=== PATIENT | male | born 1940 | race Caucasian/White ===

== ENCOUNTER → 2018-07-01 | Outpatient (CLI) | payer OTHER ==
[~2018-07-01] MED LIST: ADVAIR 100/501 DISK IH; ARTHROTEC 751 TABLET PO; ASPIR 8181 M1 PO; CYCLOBENZAPRINE10 MG PO; IRON18 MG PO; LASIX40 MG PO; METFORMIN HCL1000 M1 PO; OXYCONTIN40 MG PO; PRILOSEC20 MG PO; ULTRAM50 MG PO; VITAMIN B122500 MCG PO
[2018-07-01 08:26] LABS: COMMENTS - BLOOD GASES NAC+; FI02 21 %; PCO2 39 mm Hg (35-45); PO2 78 mm Hg (80-100); SITE RR; pH 7.41 (7.35-7.45)
[2018-07-01 08:27] LABS: BASE EXCESS 0.1 mEq/L (-3 to +3); BICARBONATE 24.7 mEq/L (22-26); CARBOXY HGB 1.3 % (0-5); METHEMOGLOBIN 0.8 % (0-1.5)
== END | disposition home or self-care (01) ==
LOC: RES 07:46
PROVIDERS: Internal Medicine Pulmonary Disease
DX: J98.4 Other disorders of lung (principal)
CPT/HCPCS: 36600; 94060; 94726; 94729